=== PATIENT | female | born 1995 | race Two or more races ===

== ENCOUNTER 2019-12-28 15:19 | Emergency (ER) | payer MEDICAID, OTHER ==
[~2019-12-28] VITALS: Ht 170.2 cm; Wt 66.4 kg
[2019-12-28 16:55] LABS: BASOPHILS # (AUTO) 0.1 X10'3 (0-0.2); EOSINOPHILS # (AUTO) 0.3 X10'3 (0-0.9); EOSINOPHILS % (AUTO) 3.5 % (0-6); HEMATOCRIT 41.3 % (35.0-45.0); HEMOGLOBIN 13.9 g/dl (12.0-16.0); LYMPHOCYTES % (AUTO) 24.3 % (21-51); MEAN CORPUSCULAR HEMOGLOBIN 30.5 PG (27.0-31.0); MEAN CORPUSCULAR HGB CONC 33.7 g/dL (33.0-36.5); MEAN CORPUSCULAR VOLUME 90.4 FL (78-98); MEAN PLATELET VOLUME 7.5 FL (7.4-10.4); MONOCYTES # (AUTO) 0.9 X10'3 (0-0.9); MONOCYTES % (AUTO) 11.5 % (2-12); NEUTROPHILS # (AUTO) 4.8 X10'3 (1.8-7.7); NEUTROPHILS % (AUTO) 59.7 % (42-75); PLATELET COUNT 333 X10'3 (140-440); RED BLOOD COUNT 4.57 X10'6 (4.20-5.60); RED CELL DISTRIBUTION WIDTH 12.5 % (11.5-14.5); WHITE BLOOD COUNT 8.1 X10'3 (4.5-11.0)
[2019-12-28 17:09] LABS: ALANINE AMINOTRANSFERASE 777 U/L (12-78); ALBUMIN 4.1 G/DL (3.4-5.0); ALBUMIN/GLOBULIN RATIO 1.2 (1.1-1.5); ALKALINE PHOSPHATASE 96 IU/L (46-116); ANION GAP 7 (8-16); ASPARTATE AMINO TRANSFERASE 323 U/L (10-37); BILIRUBIN,TOTAL 0.8 MG/DL (0.1-1.0); BLOOD UREA NITROGEN 16 MG/DL (7-18); BUN/CREATININE RATIO 17.8 (6.6-38.0); CALCIUM 9.1 MG/DL (8.5-10.1); CHLORIDE 106 MMOL/L (99-107); GLUCOSE 76 MG/DL (70-104); POTASSIUM 3.4 MMOL/L (3.5-5.1); SODIUM 140 MMOL/L (135-145); TOTAL CARBON DIOXIDE 27.2 MMOL/L (24-32); TOTAL PROTEIN 7.6 G/DL (6.4-8.2); eGFR 78 ML/MIN
[2019-12-28 17:18] LABS: ETHANOL < 0.010 GM/DL (0.0-0.010)
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
[2019-12-28] MEDS: LORazepam 0.5 MG tablet PO PRN ×2 (19:20→19:27)
[2019-12-28] MEDS ORDERED: OLANZapine **IM** 10 mg inj. IM ONE (20:00)
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
--- NOTE | 2019-12-28 20:48 | NUR ---
The patient appears to be sleeping
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
--- NOTE | 2019-12-28 22:11 | NUR ---
PA made aware of elevated liver enzymes
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
--- NOTE | 2019-12-29 00:58 | NUR ---
The patient appears to be sleeping
--- NOTE | 2019-12-29 02:44 | NUR ---
The patient appears to be sleeping
--- NOTE | 2019-12-29 04:15 | NUR ---
The patient appears to be sleeping
[2019-12-29] MEDS ORDERED: NO HOME MEDS (05:41)
--- NOTE | 2019-12-29 06:30 | NUR ---
Assumed pt care. Pt appears to be sleeping with no s/s of any distress noted.
--- NOTE | 2019-12-29 06:45 | NUR ---
Lab came to draw blood. Pt let tech take blood and pt kept lyting on R side and did not change positions. She did not say anything and then appeared to go back to sleep. No s/s of distress.
[2019-12-29 07:16] LABS: ALANINE AMINOTRANSFERASE 863 U/L (12-78); ALBUMIN 3.5 G/DL (3.4-5.0); ALBUMIN/GLOBULIN RATIO 1.1 (1.1-1.5); ALKALINE PHOSPHATASE 92 IU/L (46-116); ANION GAP 8 (8-16); ASPARTATE AMINO TRANSFERASE 405 U/L (10-37); BILIRUBIN,TOTAL 0.4 MG/DL (0.1-1.0); BLOOD UREA NITROGEN 16 MG/DL (7-18); BUN/CREATININE RATIO 22.2 (6.6-38.0); CHLORIDE 106 MMOL/L (99-107); CREATININE 0.72 MG/DL (0.40-0.90); GLUCOSE 91 MG/DL (70-104); POTASSIUM 3.7 MMOL/L (3.5-5.1); SODIUM 141 MMOL/L (135-145); TOTAL CARBON DIOXIDE 26.7 MMOL/L (24-32); TOTAL PROTEIN 6.7 G/DL (6.4-8.2); eGFR > 90 ML/MIN
--- NOTE | 2019-12-29 10:30 | NUR ---
PACKET FAXED TO [facility]
[2019-12-29 13:21] LABS: CLARITY,URINE CLEAR (Clear); GLUCOSE, URINE 100 mg/dl (Neg); KETONES,URINE NEGATIVE (Neg); LEUKOCYTE ESTERASE ,URINE NEGATIVE (Neg); NITRITES, URINE NEGATIVE (Neg); OCCULT BLOOD,URINE NEGATIVE (Neg); PH,URINE 5.5 (4.8-8.0); PROTEIN,URINE NEGATIVE (Neg); URINE HCG NEGATIVE (NEG)
[2019-12-29 13:24] LABS: COLOR,URINE AMBER (Yellow); UA COLLECTION TYPE CLN CATCH MIDSTREAM
[2019-12-29 13:29] LABS: URINE AMPHETAMINE SCREEN POSITIVE (Neg); URINE BARBITUATE SCREEN NEGATIVE (Neg); URINE BENZODIAZEPINES SCREEN NEGATIVE (Neg); URINE CANNABINOID SCREEN NEGATIVE (Neg); URINE COCAINE SCREEN NEGATIVE (Neg); URINE METHADONE SCREEN NEGATIVE (Neg); URINE OPIATE SCREEN NEGATIVE (Neg); URINE PHENCYCLIDINE SCREEN NEGATIVE (Neg)
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
--- NOTE | 2019-12-29 14:59 | NUR ---
OFFICER SUZANNA CALLED TO REPORT SHE IS ON HER WAY TO INTERVIEW THE PT.
--- NOTE | 2019-12-29 15:13 | NUR ---
PT BEING INTERVIEWED BY OFFICER SUZANNA.
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
--- NOTE | 2019-12-29 16:00 | NUR ---
Pt cleared for discharge. Called [facility] to transport pt to [facility]. Went over discharge instructions and pt stated understanding.
[2019-12-29 16:33] VITALS: BP 93/59
[2020-01-04] MEDS ORDERED: ARIP300S2 IM (16:54)
[2020-01-04] MEDS ORDERED: QUET25TA PO (16:54)
== END 2019-12-29 16:40 | disposition home or self-care (01) ==
LOC: ER 15:20
DX: F19.159 Other psychoactive substance abuse with psychoactive substance-induced psychotic disorder, unspecified (principal); R74.0 Nonspecific elevation of levels of transaminase and lactic acid dehydrogenase [LDH]
CPT/HCPCS: 36415; 80053; 80305; 80320; 81003; 81025; 84443; 85025; 96372; 99284; J3490; 99283